=== PATIENT | male | born 1990 | race Caucasian/White ===

== ENCOUNTER 2017-12-14 09:50 | Emergency (ER) | payer OTHER, MEDICAID ==
[~2017-12-14] VITALS: Ht 198.1 cm; Wt 66.2 kg
[~2017-12-14 09:50] MED LIST: DEPAKOTE; SEROQUEL
[2017-12-14] MEDS ORDERED: SODIUM CHLORIDE 0.9% 1,000 ML IV ONE (10:12)
[2017-12-14 10:17] VITALS: BP 123/75
[2017-12-14 10:39] LABS: Basophils # (auto) 0 uL; Basophils % (auto) 0.2 % (0.0-2.0); Eosinophils # (auto) 0 uL; Eosinophils % (auto) 0.5 % (0.0-7.0); Hematocrit 44.3 % (41.0-53.0); Hemoglobin 15.3 g/dL (13.5-17.5); Lymphocytes # (auto) 2.5 uL; Lymphocytes % (auto) 27.5 % (10.0-50.0); Mean Corpuscular Hemoglobin 32.5 pg (28.0-32.0); Mean Corpuscular Hgb Conc. 34.6 g/dL (32.0-36.0); Mean Corpuscular Volume 93.9 fL (80.0-100.0); Monocytes # (auto) 0.9 uL; Neutrophils # (auto) 5.6 uL; Neutrophils % (auto) 61.8 % (37.0-80.0); Nucleated Red Blood Cells % 0.1 %; Platelet Count (auto) 168 10^3/uL (140-450); Red Blood Cells 4.72 10^6/uL (4.5-5.90); Red Cell Distribution Width 14.3 % (11.8-14.3); White Blood Cell 9.1 10^3/uL (4.4-10.8)
[2017-12-14 10:52] LABS: INR 1.12 (0.9-1.15); Partial Thromboplastin Time 26.3 sec (23.78-33.04); Prothrombin Time 11.9 sec (9.27-12.13)
[2017-12-14 10:58] LABS: Alanine Aminotransferase 23 U/L (16-61); Albumin 4.1 g/dL (3.4-5.0); Alkaline Phosphatase 49 U/L (45-117); Anion Gap 8 (5-15); Aspartate Aminotransferase 9 U/L (15-37); BUN/Creatinine Ratio 8.1; Bilirubin, Total 0.5 mg/dL (0.2-1.0); Blood Urea Nitrogen 9 mg/dL (7-18); Calcium 9.1 mg/dL (8.5-10.1); Carbon Dioxide 25 mmol/L (21-32); Chloride 108 mmol/L (98-107); GFR African American 103 mL/min; GFR Non-African American 85 mL/min; Glucose 111 mg/dL (74-106); Potassium 3.4 mmol/L (3.5-5.1); Sodium 141 mmol/L (136-145); Total Protein 7.2 g/dL (6.4-8.2)
== END 2017-12-14 12:13 | disposition left against medical advice (07) ==
LOC: ER 09:50
DX: R00.0 Tachycardia, unspecified (principal); R42 Dizziness and giddiness; I10 Essential (primary) hypertension; F17.210 Nicotine dependence, cigarettes, uncomplicated; F15.90 Other stimulant use, unspecified, uncomplicated; Z91.018 Allergy to other foods; Z53.29 Procedure and treatment not carried out because of patient's decision for other reasons
CPT/HCPCS: 36415; 71046; 80053; 83880; 84484; 85025; 85610; 85730; 93005; 96360; 99285; J7030

== ENCOUNTER 2020-02-21 00:12 | Emergency (ER) | payer OTHER, MEDICAID ==
[~2020-02-21] VITALS: Ht 177.8 cm; Wt 72.6 kg
[2020-02-21 01:28] LABS: Basophils # (auto) 0 10 ^3/uL (0-0.2); Basophils % (auto) 0.6 % (0.0-2.0); Eosinophils # (auto) 0.2 10 ^3/uL (0-0.8); Hematocrit 46.2 % (41.0-53.0); Hemoglobin 16.1 g/dL (13.5-17.5); Lymphocytes # (auto) 2.6 10 ^3/uL (0.4-5.4); Lymphocytes % (auto) 33.3 % (10.0-50.0); Mean Corpuscular Hemoglobin 33.5 pg (28.0-32.0); Mean Corpuscular Hgb Conc. 34.8 g/dL (32.0-36.0); Mean Corpuscular Volume 96.2 fL (80.0-100.0); Monocytes # (auto) 0.8 10 ^3/uL (0-1.3); Monocytes % (auto) 10.5 % (0.0-12.0); Neutrophils # (auto) 4.2 10 ^3/uL (1.6-8.6); Neutrophils % (auto) 53.6 % (37.0-80.0); Nucleated Red Blood Cells % 0.1 %; Platelet Count (auto) 201 10^3/uL (140-450); Red Cell Distribution Width 13.8 % (11.8-14.3); White Blood Cell 7.9 10^3/uL (4.4-10.8)
[2020-02-21 02:20] LABS: BUN/Creatinine Ratio 7.1; Calcium 8.9 mg/dL (8.5-10.1); Potassium 3.4 mmol/L (3.5-5.1)
[2020-02-21 02:23] LABS: Bilirubin, Total 0.7 mg/dL (0.2-1.0); Total Protein 7.2 g/dL (6.4-8.2)
[2020-02-21 03:18] LABS: Salicylate 5.3 mg/dL (2.8-20.0)
[2020-02-21 03:21] LABS: Acetaminophen < 2.0 ug/mL (10-30)
[2020-02-21 07:10] VITALS: BP 100/67
[2020-02-21 08:59] LABS: Alcohol, Urine < 3.0 mg/dL (0-10); Amphetamine Screen, Urine NEGATIVE (NEGATIVE); Barbiturate Scree,Urine NEGATIVE (NEGATIVE); Benzodiazephine Screen, Urine POSITIVE (NEGATIVE); Cannabinoid Screen, Urine POSITIVE (NEGATIVE); Cocaine Screen, Urine NEGATIVE (NEGATIVE); Opiate Scree,Urine NEGATIVE (NEGATIVE); Phencyclidine Screen, Urine NEGATIVE (NEGATIVE)
[2020-02-21 09:08] LABS: Urine Bacteria NONE SEEN /hpf (None Seen); Urine Blood Negative /uL (Negative); Urine Mucus MANY (None Seen); Urine Specific Gravity 1.038 (1.001-1.035); Urine WBC 4 /hpf (0 - 3)
== END 2020-02-21 08:35 | disposition home or self-care (01) ==
LOC: ER 00:12 → EDBD 00:12 → ER 08:35
DX: F23 Brief psychotic disorder (principal); F20.2 Catatonic schizophrenia; F41.9 Anxiety disorder, unspecified; F31.9 Bipolar disorder, unspecified; F17.210 Nicotine dependence, cigarettes, uncomplicated; F12.10 Cannabis abuse, uncomplicated
CPT/HCPCS: 36415; 71045; 80053; 80307; 80329; 81001; 85025; 93005

== ENCOUNTER 2025-06-22 08:54 | Emergency (ER) | payer MEDICARE, MEDICAID ==
[~2025-06-22] VITALS: Ht 190.5 cm; Wt 77.4 kg
--- NOTE | 2025-06-22 09:16 | ED.PDOC ---
HPI Comments 35 y/o M, with PMHx of anxiety, schizophrenia, seizures, and COPD presents to the ED for CC of chest pain. Patient states, he has been experiencing right- sided chest pain that radiates to his back and right shoulder onset, today (06/22/25). Patient reports, pain to be "constant" and "sharp" in nature. At this time patient c/o 10/10 pain with inspiration. Patient denies nausea, vomiting, dizziness, or headache. No other symptoms or modifying factors are present at this time. Chief Complaint: Back Pain Time Seen by MD: 09:00 Primary Care Provider: [facility] Reviewed Notes: Nurses Notes, Medications, Allergies Allergies: Coded Allergies: Soy Allergy (Verified Allergy, Unknown, 12/14/17) Uncoded Allergies: COCONUT (Allergy, Unknown, 12/14/17) Home Meds Reported Medications [Depakote] No Conflict Check 07/11/12 [Seroquel] No Conflict Check 07/11/12 Information Source: Patient Mode of Arrival: Ambulatory Severity: Moderate Timing: Hours Duration: Since onset Prehospital treatment: None Location: Chest (R) Radiation: Back Quality: Sharp Onset: At Rest Cardiac Risk Factors: Smoker PE Risk Factors: None History of: None Modifying Factors: Nothing Associated Signs and Symptoms: None Past Medical History PAST MEDICAL HISTORY: Anxiety, Schizophrenia, Seizures Surgical History: Denies all surgeries Family History Family History: No family hx of Heart jenifer, No family hx of HTN Family History (Other): mom pacemaker Social History Smoker: Cigarettes, Less Than 1 Pack/Day Alcohol: Denies ETOH Use Drugs: Marijuana Lives In: Home Constitutional: denies: chills, diaphoresis, fatigue, fever, malaise, sweats, weakness, others EENTM: denies: blurred vision, double vision, ear bleeding, ear discharge, ear drainage, ear pain, ear ringing, eye pain, eye redness, hearing loss, mouth pain, mouth swelling, nasal discharge, nose bleeding, nose congestion, nose pain, photophobia, tearing, throat pain, throat swelling, voice changes, others Respiratory: denies: cough, hemoptysis, orthopnea, SOB at rest, shortness of breath, SOB with excertion, stridor, wheezing, others Cardiovascular: reports: chest pain; denies: dizzy spells, diaphoresis, Dyspnea on exertion, edema, irregular heart beat, left arm pain, lightheadedness, palpitations, PND, syncope, others Gastrointestinal: denies: abdomen distended, abdominal pain, blood streaked bowels, constipated, diarrhea, dysphagia, difficulty swallowing, hematemesis, melena, nausea, poor appetite, poor fluid intake, rectal bleeding, rectal pain, vomiting, others Genitourinary: denies: burning, dysuria, flank pain, frequency, hematuria, incontinence, penile discharge, penile sore, pain, testicle pain, testicle swelling, urgency, others Neurological: denies: dizziness, fainting, headache, left sided numbness, left sided weakness, numbness, paresthesia, pre-existing deficit, right sided numbness, right sided weakness, seizure, speech problems, tingling, tremors, weakness, others Musculoskeletal: reports: back pain; denies: gout, joint pain, joint swelling, muscle pain, muscle stiffness, neck pain, others Integumetry: denies: bruises, change in color, change in hair/nails, dryness, laceration, lesions, lumps, rash, wounds, others Allergic/Immunocompromised: denies: Difficulty Healing, Frequent Infections, Hives, Itching, others Hematologic/Lymphatic: denies: anemia, blood clots, easy bleeding, easy bruising, swollen glands, others Endocrine: denies: excessive hunger, excessive sweating, excessive thirst, excessive urination, flushing, intolerance to cold, intolerance to heat, une xplained weight gain, unexplained weight loss, others Psychiatric: denies: anxiety, bipolar disorder, depression, hopeless, panic disorder, schizophrenia, sleepless, suicidal, others All Other Systems: Reviewed and Negative Physical Exam General Appearance: No Apparent Distress, Normal HEENT: Normal ENT Inspection, Pharynx Normal Neck: Full Range of Motion, Non-Tender, Normal, Normal Inspection Respiratory: Chest Non-Tender, Lungs Clear, No Accessory Muscle Use, No Respiratory Distress, Normal Breath Sounds Cardiovascular: No Edema, No Murmur, No Gallop, Normal Peripheral Pulses, Regular Rate/Rhythm Breast Exam: Deferred Gastrointestinal: No Organomegaly, Non Tender, No Pulsatile Mass, Normal Bowel Sounds, Soft Genitalia: Deferred Pelvic: Deferred Rectal: Deferred Extremities: No calf tenderness, Normal capillary refill, Normal inspection, No rmal range of motion, Non-tender, No pedal edema Musculoskeletal : Apperance: Normal Neurologic: Alert, green pipefitter II-XII nml as Tested, No Motor Deficits, Normal Affect, Normal Mood, No Sensory Deficits Cerebellar Function: Normal Reflexes: Normal Skin: Dry, Normal Color, Warm Lymphatic: No Adenopathy Was a procedure done? Was a procedure done?: No CP Differential Dx Differential Diagnosis: Angina Differential Diagnosis: HTN Essential, HTN Accelerated Differential Diagnosis: Chest Wall Pain, Costochondritis, Esophageal reflux/spasm, Other (drug abuse) X-Ray, Labs, Meds, VS Vital Signs Date Time Temp Pulse Resp B/P (MAP) Pulse Ox O2 Delivery O2 Flow Rate FiO2 06/22/25 12:15 98.1 94 16 104/65 (78) 98 98.1 06/22/25 11:23 80 19 106/62 06/22/25 10:53 75 17 106/68 06/22/25 10:40 75 16 98 Room Air 06/22/25 10:40 97.7 75 16 106/68 (81) 98 97.7 06/22/25 10:19 66 06/22/25 09:01 74 06/22/25 08:55 97.2 89 18 107/66 97 97.2 Lab Test 06/22/25 12:05 06/22/25 10:07 06/22/25 09:20 Range/Units Troponin I High Sensitivity 3 L < 3 L < 3 L </=54 ng/L White Blood Count 7.0 4.4-10.8 10^3/uL Red Blood Count 5.05 4.5-5.90 10^6/uL Hemoglobin 16.5 13.5-17.5 g/dL Hematocrit 48.3 41.0-53.0 % Mean Corpuscular Volume 95.7 80.0-100.0 fL Mean Corpuscular Hemoglobin 32.6 H 28.0-32.0 pg Mean Corpuscular Hemoglobin Concent 34.1 32.0-36.0 g/dL Red Cell Distribution Width 13.8 11.8-14.3 % Platelet Count 211 140-450 10^3/uL Mean Platelet Volume 7.6 6.9-10.8 fL Neutrophils (%) (Auto) 64.0 37.0-80.0 % Lymphocytes (%) (Auto) 25.7 10.0-50.0 % Monocytes (%) (Auto) 7.5 0.0-12.0 % Eosinophils (%) (Auto) 2.2 0.0-7.0 % Basophils (%) (Auto) 0.6 0.0-2.0 % Neutrophils # (Auto) 4.5 1.6-8.6 10 ^3/uL Lymphocytes # (Auto) 1.8 0.4-5.4 10 ^3/uL Monocytes # (Auto) 0.5 0-1.3 10 ^3/uL Eosinophils # (Auto) 0.2 0-0.8 10 ^3/uL Basophils # (Auto) 0 0-0.2 10 ^3/uL Nucleated Red Blood Cells 0.1 % Sodium Level 142 136-145 mmol/L Potassium Level 4.0 3.5-5.1 mmol/L Chloride Level 108 H 98-107 mmol/L Carbon Dioxide Level 28 20-31 mmol/L Anion Gap 6 5-15 Blood Urea Nitrogen 8 L 9-23 mg/dL Creatinine 1.05 0.700-1.30 mg/dL Glomerular Filtration Rate Calc 96 >90 mL/min BUN/Creatinine Ratio 7.6 L 10.0-20.0 Serum Glucose 85 74-106 mg/dL Calcium Level 9.9 8.7-10.4 mg/dL Total Bilirubin 0.5 0.2-1.0 mg/dL Aspartate Amino Transferase (AST) 12 L 13-40 U/L Alanine Aminotransferase (ALT) 18 7-40 U/L Alkaline Phosphatase 49 46-116 U/L B-Type Natriuretic Peptide 21.56 0-100 pg/mL Total Protein 7.5 5.7-8.2 g/dL Albumin 4.8 3.2-4.8 g/dL Lipase 35 12-53 U/L Current Medications Medications (Trade) Dose Ordered Sig/Robert Route Start Time Stop Time Status Last Admin Morphine Sulfate 4 mg ONCE ONCE IV 06/22/25 10:30 06/22/25 10:31 DC 06/22/25 10:53 Ondansetron HCl (Zofran) 4 mg ONCE ONCE IV 06/22/25 10:30 06/22/25 10:31 DC 06/22/25 10:53 Ketorolac Tromethamine (Toradol Injection) 15 mg ONCE ONCE IV 06/22/25 10:45 06/22/25 10:48 DC 06/22/25 10:53 [place] [id number] Ph: [phone] DIAGNOSTIC IMAGING Diagnostic Imaging Report : [id number] Signed PATIENT: MIRTHA CORRALCCT: [id number] UNIT: [id number] : 1990 LOC: ER ROOM / BED: / AGE / SEX: 35 / M ADM STATUS: REG ER SERVICE 9 ORDERING PHYSICIAN: LEELEE LEVINE MD PROCEDURE(s): CXRP - CHEST PORTABLE REASON: cp ORDER NUMBER(s): [id number], ACCESSION NUMBER(s): [id number] EXAM: XY CHEST PORTABLE HISTORY: cp COMPARISON: None TECHNIQUE: PA upright view of the chest was performed. FINDINGS: There is central peribronchial thickening. There is mild scarring and or atelectasis in the bilateral lung bases. No pneumothorax or pulmonary edema. The heart is not enlarged. IMPRESSION: 1. Reactive airways disease. 2. Mild bilateral lung base Scarring and/or atelectasis. Comparison with old chest imaging would be helpful in making this distinction. ATED BY: DEONDRE OLIVARES MD DICTATED DATE/TIME: 06/22/25946 SIGNED BY: DEONDRE OLIVARES MD SIGNED DATE/TIME: 06/22/25946 CC: Time of 1ST Reevaluation: 09:30 Reevaluation 1ST: Unchanged Patient Education/Counseling: Diagnosis, Treatment Family Education/Counseling: No Family Present SEPSIS Sepsis Screen Date sepsis recognized/suspect: Jun 22, 2025 Time Sepsis recognized/suspect: 0856 Recent Procedure: No On Antibiotic Therapy: No Respiratory Rate >20: No Heart Rate >90: No Temp<36 C (96.8 F) or >38.3 C: No SBP <90 or MAP <65 mmHG: No New Acute Mental Status Change: No Is the patient on CPAP, BIPAP,: No Physician Orders Electrocardigram (06/22/25 08:59) Chest Portable (06/22/25 09:10) Electrocardigram (06/22/25 10:10) Electrocardigram (06/22/25 12:10) Albuterol Medneb (Ventolin Medneb) (06/22/25 13:45) Ipratropium Medneb (Atrovent Medneb) (06/22/25 13:45) Methylprednisolone Sod Succ (Solu Medrol (06/22/25 13:45) Vital Signs Date Time Temp Pulse Resp B/P (MAP) Pulse Ox O2 Delivery O2 Flow Rate FiO2 06/22/25 12:15 98.1 94 16 104/65 (78) 98 98.1 06/22/25 11:23 80 19 106/62 06/22/25 10:53 75 17 106/68 06/22/25 10:40 75 16 98 Room Air 06/22/25 10:40 97.7 75 16 106/68 (81) 98 97.7 06/22/25 10:19 66 06/22/25 09:01 74 06/22/25 08:55 97.2 89 18 107/66 97 97.2 Laboratory Tests Test 06/22/25 09:20 White Blood Count 7.0 10^3/uL (4.4-10.8) Medications Medications Dose Ordered Sig/Robert Route Start Time Stop Time Status Last Admin Dose Admin Ketorolac Tromethamine 15 mg ONCE ONCE IV 06/22/25 10:45 06/22/25 10:48 DC 06/22/25 10:53 Morphine Sulfate 4 mg ONCE ONCE IV 06/22/25 10:30 06/22/25 10:31 DC 06/22/25 10:53 Ondansetron HCl 4 mg ONCE ONCE IV 06/22/25 10:30 06/22/25 10:31 DC 06/22/25 10:53 Departure 1 Departure Time of Disposition: 13:46 (Patient presented with chest pain that was concerning for possible STEMI, ACS, PE, Pneumonia, Muscle Strain, COPD, Dissection. Data: 1. I ordered and reviewed the result of at least 3 labs including a CBC, BMP, and Troponin. 2. I independently interpreted the following tests: EKG which shows normal sinus rhythm and Chest X-ray which shows a benign chest.Risk:This patient presented with a high risk of morbidity due to further diagnostic testing or treatment and may suffer from an acute cardiac or respiratory disorder. After review of all the data patient is unlikely to have a pe , dissection, and is low risk for acs. Patient is stable at this time.Workup so far is benign and patient will be discharged with outpatient followup. ) Impression: Primary Impression: Acute chest pain Disposition: HOME / SELF CARE / HOMELESS Condition: Stable Additional Instructions: You presented today with chest pain. Your workup today was benign including labs, troponin, EKG, chest x-ray. Your pain may be from musculoskeletal strain, acid reflux, anxiety, or many other factors. You may have pleurisy. It is important to follow up with your regular doctor within 1 week. If your symptoms worsen or you have any other concerns please return to the emergency room. Discharged With: Self Critical Care Note Critical Care Time?: No Stability Stability form required: No Heart Score Heart Score: Heart Score Response (Comments) Value History N/A 0 EKG N/A 0 Age N/A 0 Risk Factors N/A 0 Troponin N/A 0 Total 0 I personally scribed for LEELEE LEVINE MD ([email or web address]) on 06/22/25 at 09:16. Electronically submitted by Eileen Fernando ([email or web address]). I personally scribed for LEELEE LEVINE MD ([email or web address]) on 06/22/25 at 10:36. Electronically submitted by Eileen Fernando ([email or web address]). LEELEE LEVINE MD Jun 22, 2025 09:16
[2025-06-22 09:28] LABS: Hematocrit 48.3 % (41.0-53.0); Hemoglobin 16.5 g/dL (13.5-17.5); Mean Corpuscular Hemoglobin 32.6 pg (28.0-32.0); Mean Corpuscular Volume 95.7 fL (80.0-100.0); Nucleated Red Blood Cells % 0.1 %
[2025-06-22 09:47] LABS: Alanine Aminotransferase 18 U/L (7-40); Albumin 4.8 g/dL (3.2-4.8); Alkaline Phosphatase 49 U/L (46-116); Anion Gap 6 (5-15); BUN/Creatinine Ratio 7.6 (10.0-20.0); Bilirubin, Total 0.5 mg/dL (0.2-1.0); Blood Urea Nitrogen 8 mg/dL (9-23); Calcium 9.9 mg/dL (8.7-10.4); Carbon Dioxide 28 mmol/L (20-31); Chloride 108 mmol/L (98-107); Glucose 85 mg/dL (74-106); Potassium 4.0 mmol/L (3.5-5.1); Sodium 142 mmol/L (136-145); Total Protein 7.5 g/dL (5.7-8.2)
--- NOTE | 2025-06-22 09:49 | DVH ---
EXAM: XY CHEST PORTABLE HISTORY: cp COMPARISON: None TECHNIQUE: PA upright view of the chest was performed. FINDINGS: There is central peribronchial thickening. There is mild scarring and or atelectasis in the bilateral lung bases. No pneumothorax or pulmonary edema. The heart is not enlarged. IMPRESSION: 1. Reactive airways disease. 2. Mild bilateral lung base Scarring and/or atelectasis. Comparison with old chest imaging would be helpful in making this distinction.
[2025-06-22 10:02] LABS: Lipase 35 U/L (12-53)
[2025-06-22] MEDS: KETOROLAC TROMETH 30 MG/ML 1ML VIAL IV ONE (10:53)
[2025-06-22] MEDS: MORPHINE SULFATE 4 MG/ML SYR/VIAL IV ONE (10:53)
[2025-06-22] MEDS: ONDANSETRON HCL 4 MG/2 ML VIAL IV ONE (10:53)
[2025-06-22] MEDS: IPRATROPIUM BROM 0.5 MG/2.5ML INH SOL NEB ONE (14:10)
[2025-06-22] MEDS: ALBUTEROL SULF 2.5 MG/0.5ML(0.5%) NEB SOLN NEB ONE (14:10)
[2025-06-22] MEDS: methylPREDNISolone SOD SUCC 125 MG/2 ML VL IV ONE (14:28)
[2025-06-22 14:49] VITALS: BP 102/64; PULSE 98; RESP 17; TEMP 98.8; O2SAT 98
--- NOTE | 2025-06-23 10:42 | ECG ---
[facility] Test Date: 2025-06-22 Test Time: 09:01:52 Pat Name: SHIRLEY CORRAL Department: ED Room: Gender: M Studio Assistant: SHELIA : 1990 Requested By: LEELEE LEVINE Order Number: [id number] Reading MD: Measurements Intervals [place] Rate: 74 P: 77 MN: 135 QRS: -99 QRSD: 102 T: 80 QT: 383 QTc: 425 Interpretive Statements Sinus rhythm Right atrial enlargement Right ventricular hypertrophy Inferior infarct, acute ST elevation, consider anterolateral injury Please click the below link to view image of tracing.
--- NOTE | 2025-06-23 10:42 | ECG ---
[facility] Test Date: 2025-06-22 Test Time: 10:16:57 Pat Name: SHIRLEY CORRAL Department: ED Room: Gender: M Traffic Control Technician: DEANDRA : 1990 Requested By: LEELEE LEVINE Order Number: [id number] Reading MD: Measurements Intervals [place] Rate: 66 P: 59 OK: 143 QRS: -98 QRSD: 100 T: 79 QT: 391 QTc: 410 Interpretive Statements Sinus rhythm Probable right ventricular hypertrophy Inferolateral infarct, acute Borderline ST elevation, anterior leads Please click the below link to view image of tracing.
== END 2025-06-22 14:51 | disposition home or self-care (01) ==
LOC: ER 08:54
DX: R07.89 Other chest pain (principal); J44.89 Other specified chronic obstructive pulmonary disease; F20.9 Schizophrenia, unspecified; F17.210 Nicotine dependence, cigarettes, uncomplicated; Z91.018 Allergy to other foods; Z79.899 Other long term (current) drug therapy
CPT/HCPCS: 36415; 71045; 80053; 83690; 83880; 84484; 85025; 93005; 94640; 96374; 96375; 99285; J1885; J2270; J2405; J2919